=== PATIENT | male | born 1995 | race African-American/Black ===

== ENCOUNTER 2016-05-28 05:55 | Emergency (ER) | payer OTHER ==
[~2016-05-28] VITALS: Ht 167.6 cm; Wt 68.0 kg
[~2016-05-28 05:55] MED LIST: ALBU17AE26
--- NOTE | 2016-05-28 06:00 | NUR ---
Placed in room 8 To gown for exam. Side rails up.
--- NOTE | 2016-05-28 06:05 | NUR ---
Pt presents to ED with c/o R eye redness, watery, and itchy, uncomfortable 06/18. Pt stated that his mom had a pink eye, he started to have symptoms since Tuesday. A&Ox4, denies SOB or chestpain, denies N/V/D. Skin intact. Will continue to monitor
[2016-05-28 06:09] VITALS: BP 131/93; PULSE 81; RESP 16; TEMP 97.6; O2SAT 99
--- NOTE | 2016-05-28 07:00 | NUR ---
Dr. Nugent saw pt on prior shift.
[2016-05-28 07:22] VITALS: BP 128/86; PULSE 76; RESP 20; TEMP 98.1; O2SAT 100
--- NOTE | 2016-05-28 07:22 | NUR ---
Patient given written and verbal discharge instructions and verbalizes understanding. ER MD discussed with patient the results and treatment provided. Patient in stable condition. ID arm band removed. Rx of Blep Opth Solution given. Patient educated on pain management and to follow up with PMD. Pain Scale 0/10. Opportunity for questions provided and answered.
== END 2016-05-28 07:22 | disposition home or self-care (01) ==
LOC: SED 05:55
DX: H10.9 Unspecified conjunctivitis (principal); J45.909 Unspecified asthma, uncomplicated; Z88.0 Allergy status to penicillin; Z91.02 Food additives allergy status; Z86.79 Personal history of other diseases of the circulatory system
CPT/HCPCS: 99283

== ENCOUNTER 2017-02-21 19:02 | Emergency (ER) | payer MEDICAID, OTHER ==
[~2017-02-21] VITALS: Ht 167.6 cm; Wt 72.6 kg
[2017-02-21 19:09] VITALS: BP_SYST 139
[2017-02-21] MEDS ORDERED: AZITHROMYCIN 250 MG TABLET PO ONE (20:15)
[2017-02-21 20:29] LABS: BILIRUBIN,URINE NEGATIVE (NEGATIVE); BLOOD, URINE NEGATIVE (NEGATIVE); CLARITY/URINE CLEAR (CLEAR); COLOR,URINE YELLOW (YELLOW); GLUCOSE,URINE NEGATIVE (NEGATIVE); KETONES,URINE NEGATIVE (NEGATIVE); LEUKOCYTE ESTERASE ,URINE NEGATIVE (NEGATIVE); NITRITE, URINE NEGATIVE (NEGATIVE); PH,URINE 6.5 (5.0-8.0); PROTEIN URINE NEGATIVE (NEGATIVE); UROBILINOGEN,URINE 0.2 (0.2-1.0)
[2017-02-21 20:55] VITALS: BP_SYST 139
[2017-02-24 02:18] LABS: NEISSERIA GONORRHOEAE NAA Negative (Negative)
== END 2017-02-21 20:55 | disposition home or self-care (01) ==
LOC: SED 19:02
DX: Z20.2 Contact with and (suspected) exposure to infections with a predominantly sexual mode of transmission (principal); R03.0 Elevated blood-pressure reading, without diagnosis of hypertension; J45.909 Unspecified asthma, uncomplicated; Z88.0 Allergy status to penicillin; Z91.018 Allergy to other foods
CPT/HCPCS: 81003; 87491; 87591; 99284; Q0144

== ENCOUNTER 2017-03-08 18:50 | Emergency (ER) | payer MEDICAID ==
[~2017-03-08] VITALS: Ht 167.6 cm; Wt 75.7 kg
[2017-03-08 18:50] VITALS: BP_SYST 143
[2017-03-08] MEDS ORDERED: DEXAMETHASONE SOD PHOSPHATE 10 MG/ML VIAL IM ONE (19:30)
[2017-03-08] MEDS ORDERED: DIPHENHYDRAMINE INJ 50 MG/ML VIAL IM ONE (19:30)
[2017-03-08] MEDS ORDERED: IPRATROPIUM/ALBUTEROL SULFATE 3 ML AMPUL.NEB INH ONE (19:30)
[2017-03-08 19:58] VITALS: BP_SYST 139
== END 2017-03-08 19:58 | disposition home or self-care (01) ==
LOC: SED 18:50
DX: T78.1XXA Other adverse food reactions, not elsewhere classified, initial encounter (principal); R06.02 Shortness of breath; R09.81 Nasal congestion; J45.909 Unspecified asthma, uncomplicated; Z88.0 Allergy status to penicillin; Z91.018 Allergy to other foods; Z86.73 Personal history of transient ischemic attack (TIA), and cerebral infarction without residual deficits; X58.XXXA Exposure to other specified factors, initial encounter
CPT/HCPCS: 71010; 93005; 94640; 96372; 99284; J1100; J1200

== ENCOUNTER 2018-12-03 13:50 | Emergency (ER) | payer MEDICAID ==
[~2018-12-03] VITALS: Ht 170.2 cm; Wt 81.6 kg
[2018-12-03 13:53] VITALS: BP_SYST 150
--- NOTE | 2018-12-03 13:59 | NUR ---
Placed in room 1. Placed on protective services case worker, blood pressure machine and pulse oximeter. To gown for exam. Side rails up. Report given to Danielle CHRISTINE.
--- NOTE | 2018-12-03 14:05 | NUR ---
ER Dr. Foote at bedside examining patient.
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
[2018-12-03] MEDS ORDERED: DIPH-TET-PERTUS Vaccine 0.5 ML VIAL (ADACEL) I.M. ONE (14:15)
[2018-12-03] MEDS ORDERED: LIDOCAINE HCL/PF 1% 10 ML AMPUL INJ ONE (14:15)
--- NOTE | 2018-12-03 14:19 | NUR ---
PT to Radiology via wheelchair with radiology staff
--- NOTE | 2018-12-03 14:25 | NUR ---
PT to ER bed 1 from Radiology via wheelchair with radiology staff.
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
[2018-12-03] MEDS ORDERED: BACITRACIN 1 GM OINT TP ONE (15:31)
[2018-12-03 15:40] VITALS: BP_SYST 150
--- NOTE | 2018-12-03 15:40 | NUR ---
Patient given written and verbal discharge instructions and verbalizes understanding. ER MD discussed with patient the results and treatment provided. Patient in stable condition. ID arm band removed. IV catheter removed intact and dressing applied, no active bleeding. Rx of Ibuprofen given. Patient educated on pain management and to follow up with PMD. Pain Scale 3/10 tolerable for patient. Opportunity for questions provided and answered. Medication side effect fact sheet provided.
--- NOTE | 2018-12-03 15:41 | NUR ---
MICHELLE at bedside for interview with pt.
== END 2018-12-03 15:40 | disposition home or self-care (01) ==
LOC: SED 13:50
DX: S02.2XXA Fracture of nasal bones, initial encounter for closed fracture (principal); S61.521A Laceration with foreign body of right wrist, initial encounter; J45.909 Unspecified asthma, uncomplicated; Z88.0 Allergy status to penicillin; Z91.018 Allergy to other foods; X99.1XXA Assault by knife, initial encounter; Y93.89 Activity, other specified; Y92.89 Other specified places as the place of occurrence of the external cause; Y99.8 Other external cause status
CPT/HCPCS: 12002; 70450; 70486; 90471; 90715; 99284; J2001